=== PATIENT | male | born 1980 | race Two or more races ===

== ENCOUNTER 2024-03-01 17:16 | Emergency (ER) | payer OTHER, SELFPAY ==
[~2024-03-01] VITALS: Ht 177.8 cm; Wt 100.0 kg
[2024-03-01] MEDS: diphenhydrAMINE 50MG/ML VIAL IM ONE (17:54)
[2024-03-01] MEDS: HALOPERIDOL 5MG/ML 1ML VIAL IM ONE (17:54)
[2024-03-01] MEDS: LORazepam 2 MG/ML 1ML VIAL IM ONE (17:54)
[2024-03-01 19:31] LABS: HEMATOCRIT 46.1 % (42.0-52.0); HEMOGLOBIN 15.2 g/dl (13.5-17.5); MEAN CORPUSCULAR HEMOGLOBIN 31.3 pg (27.0-33.0); MEAN CORPUSCULAR VOLUME 94.9 fl (80.0-96.0); PLATELET COUNT, AUTOMATED 516 10^3/uL (150-450); RED BLOOD COUNT 4.86 10^6/uL (4.30-6.10); WHITE BLOOD COUNT 11.5 10^3/uL (4.0-10.0)
[2024-03-01 19:56] LABS: AMPHETAMINES LEVEL URINE NEGATIVE (NEGATIVE); BARBITURATES URINE NEGATIVE (NEGATIVE); BENZODIAZEPINES URINE NEGATIVE (NEGATIVE); COCAINE METABOLITE URINE NEGATIVE (NEGATIVE); ETHYL ALCOHOL (ETHANOL) < 0.003 % (0.000-0.010); METHADONE URINE NEGATIVE (NEGATIVE); OPIATES URINE NEGATIVE (NEGATIVE); PHENCYCLIDINE URINE NEGATIVE (NEGATIVE)
[2024-03-01 19:58] LABS: ALBUMIN 4.4 G/DL (3.2-5.2); ALKALINE PHOSPHATASE 82 U/L (46-116); ALT/SGPT 53 U/L (7.0-40); AST/SGOT 35 U/L (<34); BILIRUBIN,DIRECT 0.2 MG/DL (<0.4); BILIRUBIN,TOTAL 0.6 MG/DL (0.3-1.2); BLOOD UREA NITROGEN 12 MG/DL (9-23); CARBON DIOXIDE LEVEL 20 MMOL/L (20-31); CHLORIDE LEVEL 102 MMOL/L (98-107); CREATININE FOR GFR 0.98 MG/DL (0.70-1.30); GLOMERULAR FILTRATION RATE > 60.0 (>60); GLUCOSE, FASTING 100 MG/DL (60-100); POTASSIUM SERUM 3.4 MMOL/L (3.5-5.1); SALICYLATE LEVEL < 3.0 MG/DL (<30); SODIUM LEVEL 137 MMOL/L (136-145); TOTAL PROTEIN 8.2 G/DL (5.7-8.2)
[2024-03-01 20:00] LABS: THYROID STIMULATING HORMONE 2.992 uIU/ML (0.55-4.78)
[2024-03-01 20:08] LABS: CANNABINOIDS URINE POSITIVE (NEGATIVE)
[2024-03-01 22:50] VITALS: BP 131/71; TEMP 98.1; O2SAT 98
== END 2024-03-01 23:33 | disposition home or self-care (01) ==
LOC: M ED 17:16
DX: F43.0 Acute stress reaction (principal); F43.10 Post-traumatic stress disorder, unspecified
CPT/HCPCS: 70450; 80048; 80076; 80143; 80307; 82077; 84443; 85027; 96372; 99291; J1200; J1630; J2060

== ENCOUNTER 2024-03-06 13:36 | Emergency (ER) | payer OTHER, SELFPAY ==
[~2024-03-06] VITALS: Ht 180.3 cm; Wt 96.4 kg
[2024-03-06] MEDS ORDERED: VALA1TAB5 PO (14:08)
[2024-03-06 18:30] VITALS: BP 118/64; TEMP 96.4; O2SAT 100
[2024-03-07] MEDS ORDERED: D 1010004 PO (14:18)
== END 2024-03-06 19:08 | disposition home or self-care (01) ==
LOC: M ED 13:36
DX: F43.0 Acute stress reaction (principal); R07.89 Other chest pain; F43.10 Post-traumatic stress disorder, unspecified; F10.10 Alcohol abuse, uncomplicated; F12.10 Cannabis abuse, uncomplicated; Z91.030 Bee allergy status

== ENCOUNTER 2024-03-07 11:35 | Emergency (ER) | payer OTHER ==
[~2024-03-07 11:35] MED LIST: VALA1TAB5 PO
[2024-03-07 12:51] LABS: HEMOGLOBIN 14.5 g/dl (13.5-17.5); MEAN CORPUSCULAR HEMOGLOBIN 31.5 pg (27.0-33.0); MEAN CORPUSCULAR HGB CONC 34.5 g/dl (32.0-36.5); MEAN CORPUSCULAR VOLUME 91.3 fl (80.0-96.0); PLATELET COUNT, AUTOMATED 490 10^3/uL (150-450)
[2024-03-07 13:10] LABS: AMPHETAMINES LEVEL URINE NEGATIVE (NEGATIVE); BARBITURATES URINE NEGATIVE (NEGATIVE); BENZODIAZEPINES URINE NEGATIVE (NEGATIVE); COCAINE METABOLITE URINE NEGATIVE (NEGATIVE); METHADONE URINE NEGATIVE (NEGATIVE); OPIATES URINE NEGATIVE (NEGATIVE)
[2024-03-07 13:11] LABS: CANNABINOIDS URINE POSITIVE (NEGATIVE); PHENCYCLIDINE URINE NEGATIVE (NEGATIVE)
[2024-03-07 13:15] LABS: ETHYL ALCOHOL (ETHANOL) 0.005 % (0.000-0.010)
[2024-03-07 13:16] LABS: ALBUMIN 4.2 G/DL (3.2-5.2); ALKALINE PHOSPHATASE 76 U/L (46-116); ALT/SGPT 83 U/L (7.0-40); AST/SGOT 51 U/L (<34); BILIRUBIN,DIRECT 0.2 MG/DL (<0.4); BILIRUBIN,TOTAL 0.6 MG/DL (0.3-1.2); BLOOD UREA NITROGEN 11 MG/DL (9-23); CALCIUM LEVEL 9.6 MG/DL (8.5-10.1); CARBON DIOXIDE LEVEL 23 MMOL/L (20-31); CHLORIDE LEVEL 104 MMOL/L (98-107); CREATININE FOR GFR 0.85 MG/DL (0.70-1.30); GLOMERULAR FILTRATION RATE > 60.0 (>60); GLUCOSE, FASTING 81 MG/DL (60-100); POTASSIUM SERUM 3.7 MMOL/L (3.5-5.1); SALICYLATE LEVEL < 3.0 MG/DL (<30); SODIUM LEVEL 139 MMOL/L (136-145); TOTAL PROTEIN 7.4 G/DL (5.7-8.2)
[2024-03-07 13:17] LABS: THYROID STIMULATING HORMONE 0.564 uIU/ML (0.55-4.78)
[2024-03-07] MEDS ORDERED: D 1010004 PO (14:18)
[2024-03-07] MEDS ORDERED: HOME MED LIST COMPLETE! XX SCH (14:20)
[2024-03-07] MEDS: LORazepam 0.5 MG TAB PO STA (17:11)
[2024-03-07] MEDS: HALOPERIDOL 5MG/ML 1ML VIAL IM ONE (18:40)
[2024-03-07] MEDS: LORazepam 2 MG/ML 1ML VIAL IM ONE (18:41)
[2024-03-08] VITALS: BP 132/77; TEMP 96.9; O2SAT 99
== END 2024-03-08 00:04 | disposition short-term general hospital (02) ==
LOC: M ED 11:35
DX: F32.A Depression, unspecified (principal); F43.10 Post-traumatic stress disorder, unspecified; F10.10 Alcohol abuse, uncomplicated; F12.10 Cannabis abuse, uncomplicated; Z91.030 Bee allergy status
CPT/HCPCS: 80048; 80076; 80143; 80307; 81001; 82077; 84443; 85027; 87635; 93005; 96372; 99285; J1630; J2060

== ENCOUNTER 2024-08-26 17:48 | Emergency (ER) | payer OTHER ==
[~2024-08-26] VITALS: Ht 180.3 cm; Wt 113.9 kg
[~2024-08-26 17:48] MED LIST changes: +D 1010004 PO
[2024-08-26 18:12] VITALS: TEMP 97.4
[2024-08-26 20:06] LABS: BASO % 0.6 % (0.0-1.0); EOS # 0.2 10^3/uL (0.0-0.5); EOS % 2.6 % (0.0-3.0); LYMPH % 30.7 % (24.0-44.0); MEAN CORPUSCULAR HGB CONC 33.3 g/dl (32.0-36.5); MEAN CORPUSCULAR VOLUME 93.1 fl (80.0-96.0); MONO # 0.5 10^3/uL (0.0-0.8); MONO % 8.1 % (2.0-8.0); NEUTROPHILS # 3.8 10^3/uL (1.5-8.5); NEUTROPHILS % 57.5 % (36.0-66.0); PLATELET COUNT, AUTOMATED 465 10^3/uL (150-450); RED BLOOD COUNT 4.51 10^6/uL (4.30-6.10); WHITE BLOOD COUNT 6.7 10^3/uL (4.0-10.0)
[2024-08-26 21:30] LABS: ALBUMIN 3.7 G/DL (3.2-5.2); ALKALINE PHOSPHATASE 94 U/L (46-116); ALT/SGPT 114 U/L (7.0-40); AST/SGOT 48 U/L (<34); BILIRUBIN,DIRECT < 0.1 MG/DL (<0.4); BILIRUBIN,TOTAL 0.3 MG/DL (0.3-1.2); BLOOD UREA NITROGEN 10 MG/DL (9-23); CALCIUM LEVEL 9.4 MG/DL (8.5-10.1); CARBON DIOXIDE LEVEL 25 MMOL/L (20-31); CHLORIDE LEVEL 110 MMOL/L (98-107); CREATININE FOR GFR 0.74 MG/DL (0.70-1.30); GLOMERULAR FILTRATION RATE > 60.0 (>60); GLUCOSE, FASTING 86 MG/DL (60-100); POTASSIUM SERUM 4.2 MMOL/L (3.5-5.1); SODIUM LEVEL 140 MMOL/L (136-145); TOTAL PROTEIN 7.3 G/DL (5.7-8.2)
[2024-08-27 01:58] VITALS: BP 130/76; O2SAT 96
== END 2024-08-27 02:25 | disposition home or self-care (01) ==
LOC: M ED 17:48
DX: R60.0 Localized edema (principal); K80.20 Calculus of gallbladder without cholecystitis without obstruction; I10 Essential (primary) hypertension; Z79.899 Other long term (current) drug therapy; Z91.030 Bee allergy status